=== PATIENT | male | born 1960 | race Caucasian/White ===

== ENCOUNTER 2022-01-31 07:29 | Day surgery (SDC) | payer MEDICAID ==
[~2022-01-31] VITALS: Ht 185.4 cm; Wt 93.0 kg
[2022-01-31] MEDS ORDERED: BENZOCAINE 20% 0.5mL UD SPRAY MM ONE (08:13)
[2022-01-31] MEDS ORDERED: fentaNYL CITRATE/PF 100 MCG/2 ML AMP ONE (08:13)
[2022-01-31] MEDS ORDERED: MIDAZOLAM HCL 5 MG/5 ML VIAL ONE (08:13)
[2022-01-31] MEDS ORDERED: SIMETHICONE 40 MG/0.6 ML ML ONE (09:35)
[2022-01-31] MEDS ORDERED: DIPHENHYDRAMINE INJ 50 MG/ML VIAL ONE (09:35)
[2022-01-31 13:46] VITALS: BP_SYST 114
== END 2022-01-31 12:25 | disposition home or self-care (01) ==
LOC: SDS 07:29 → SMU 08:30 → SDS 12:25
PROVIDERS: ATTEND Internal Medicine
DX: Z12.11 Encounter for screening for malignant neoplasm of colon (principal); D12.5 Benign neoplasm of sigmoid colon; K31.89 Other diseases of stomach and duodenum; K29.50 Unspecified chronic gastritis without bleeding; K20.90 Esophagitis, unspecified without bleeding; K44.9 Diaphragmatic hernia without obstruction or gangrene; K29.80 Duodenitis without bleeding; Z79.899 Other long term (current) drug therapy; Z20.822 Contact with and (suspected) exposure to COVID-19
CPT/HCPCS: 36415; 43239; 45382; 45384; 45385; 88305; 88312; 88313; J1200; J2250; J3010